=== PATIENT | male | born 1950 | race Caucasian/White ===

== ENCOUNTER → 2021-06-05 | Day surgery (SDC) | payer OTHER ==
[~2021-06-05] MED LIST: ALL DAY ALLERGY10 M2 PO; AMLODIPINE BESY10 MG PO; ATORVASTATIN CA80 MG PO; BENAZEPRIL HCL40 MG PO; HYDROCHLOROTHIA25 MG PO; OMEPRAZOLE20 MG PO; VAZALORE81 MG PO
== END | disposition home or self-care (01) ==
LOC: OR 06:24
DX: Z12.11 Encounter for screening for malignant neoplasm of colon (principal); I10 Essential (primary) hypertension; E78.5 Hyperlipidemia, unspecified; G47.30 Sleep apnea, unspecified; K21.9 Gastro-esophageal reflux disease without esophagitis; E78.00 Pure hypercholesterolemia, unspecified; Z86.010 Personal history of colon polyps; Z80.0 Family history of malignant neoplasm of digestive organs; Z80.3 Family history of malignant neoplasm of breast; Z88.8 Allergy status to other drugs, medicaments and biological substances; Z79.82 Long term (current) use of aspirin; Z79.899 Other long term (current) drug therapy
CPT/HCPCS: J2704; J7120